=== PATIENT | male | born 1960 | race Caucasian/White ===

== ENCOUNTER 2016-12-08 07:43 | Day surgery (SDC) | payer OTHER ==
[2016-12-08 08:17] VITALS: BMI 39.5
[2016-12-08 08:22] VITALS: TEMP 97.8
--- NOTE | 2016-12-08 08:39 | CP.SDSHP ---
Same Day Surgery H & P - History Proposed Procedure: EGD Pre-Op Diagnosis: SEE NOTES - Previous Medical/Surgical History Misc: Other Pain: 4.Moderate Pain Previous Surgical History: ING. HERNIA SX. BACK SX. - Allergies Allergies: Allergies No Known Allergies Allergy (Verified 04/03/16 10:33) - Physical Exam General Appearance: N Vital Signs: Vital Signs 12/08/16 08:17 Temperature 97.8 F Pulse Rate 72 Respiratory 19 Rate Blood Pressure 99/66 L O2 Sat by Pulse 98 Oximetry Mental Status: Alert & Oriented x3 Neuro: WNL Heart: WNL Lungs: WNL GI: Other - {Optional Preform as Required} Breast: WNL Abdomen: Other Rectal: Other Integument: WNL : WNL Ortho: Other ENT: WNL - Impression Pt. Evaluated Today:Candidate for Anesthesia & Procedure: Yes - Date & Time Time: 08:39 Short Stay Discharge - Short Stay Discharge Admitting Diagnosis/Reason for Visit: DYSPEPSIA Disposition: HOME/ ROUTINE
[2016-12-08] MEDS ORDERED: Midazolam 2 MG/2 ML VIAL ONE (08:40)
[2016-12-08] MEDS ORDERED: Propofol 10 mg/ml Inj (20 ML) ONE (08:41)
[2016-12-08] MEDS ORDERED: Lactated Ringer's 500 ML IV ONE (08:41)
[2016-12-08 08:46] VITALS: O2SAT 100
[2016-12-08] MEDS ORDERED: Belladonna-Phenobarbital PO ONE (09:15)
[2016-12-08 10:16] VITALS: BP 93/50; PULSE 70; RESP 15
== END 2016-12-08 10:30 | disposition home or self-care (01) ==
LOC: C.ENDO 07:43
PROVIDERS: ATTEND Specialist
DX: K29.00 Acute gastritis without bleeding (principal); K44.9 Diaphragmatic hernia without obstruction or gangrene; K31.89 Other diseases of stomach and duodenum; K29.50 Unspecified chronic gastritis without bleeding; R10.13 Epigastric pain; R10.84 Generalized abdominal pain; K21.9 Gastro-esophageal reflux disease without esophagitis
CPT/HCPCS: 43239; 88305; 88342; J2250; J2704; J3010; J7040; J7120

== ENCOUNTER 2017-06-01 10:02 | Emergency (ER) | payer OTHER ==
[2017-06-01 10:14] VITALS: BMI 39.0
[2017-06-01] MEDS ORDERED: Peg-Electrolyte Oral Soln 4L (Golytely) PO STA (13:04)
--- NOTE | 2017-06-01 14:32 | C.PDOC ---
History Of Present Illness 56 y/o male presents to the ER complaining of abdominal pain which has been present for the last 3 days. Patient reports that the pain is constant. Patient states that he had a back surgery in a hospital but he could not recall the name of the hospital. He has a back stimulator and he is taking Oxycodone. Patient notes that he did not have bowel movements for the past 3 days. Patient denies having vomiting. Time Seen by Provider: 06/01/17 11:35 Chief Complaint (Nursing): Abdominal Pain History Per: Patient History/Exam Limitations: no limitations Onset/Duration Of Symptoms: Days Current Symptoms Are (Timing): Still Present Severity: Moderate Past Medical History Reviewed: Historical Data, Nursing Documentation, Vital Signs Vital Signs: Last Vital Signs Temp 98.2 F 06/01/17 16:34 Pulse 91 H 06/01/17 16:34 Resp 20 06/01/17 16:34 BP 104/68 06/01/17 16:34 Pulse Ox 99 06/01/17 16:34 - Medical History PMH: Gastritis, Hypercholesterolemia Denies: Chronic Kidney Disease Surgical History: Endoscopy Family History: States: No Known Family Hx - Social History Hx Alcohol Use: No Hx Substance Use: No - Immunization History Hx Tetanus Toxoid Vaccination: Yes Hx Influenza Vaccination: Yes Hx Pneumococcal Vaccination: Yes Review Of Systems Except As Marked, All Systems Reviewed And Found Negative. Gastrointestinal: Positive for: Abdominal Pain, Constipation. Negative for: Vomiting Physical Exam - Physical Exam Appears: Non-toxic, No Acute Distress, Other (lying on right side, cannot lie on back) Skin: Normal Color, Warm Head: Atraumatic, Normacephalic Eye(s): bilateral: Normal Inspection Nose: Normal Oral Mucosa: Moist Neck: Supple Chest: Symmetrical Cardiovascular: Rhythm Regular Respiratory: Normal Breath Sounds, No Accessory Muscle Use, No Rales, No Rhonchi , No Wheezing Gastrointestinal/Abdominal: Normal Exam, Soft, Tenderness (diffuse tenderness on lower part of abdomen) Back: Normal Inspection, Other (dressing intact, no active bleeding) Neurological/Psych: Oriented x3, Normal Speech, Normal Motor, Normal Sensation ED Course And Treatment O2 Sat by Pulse Oximetry: 98 (RA) Pulse Ox Interpretation: Normal - Other Rad Abdomen upright X-Ray: Viewed By Me, Read By Radiologist Interpretation: Accession No. : [id number]. Patient Name / ID : ELIO GARCIA / [id number]. Exam Date : 06/01/2017 12:47:22 ( Approved ). Study Comment : Sex / Age : M / [id number]. Creator : Yolanda Berumen. Dictator : Yolanda Berumen. Charge Operator : Operations Team Leader : Yolanda Wise. Approver2 : Report Date : 06/01/2017 16:58:23. My Comment : . HISTORY: constipation. COMPARISON: CT abdomen and pelvis . FINDINGS: BOWEL: Stool retention.No bowel obstruction. BONES: Lumbosacral level L5-S1 hardware fusion present interval neuro stimulator pain device electrodes project over T9 and T8. ; pack in right upper quadrant. OTHER FINDINGS: No infiltrate. IMPRESSION: No infiltrate. No bowel obstruction. Stool retention. Lumbosacral postsurgical change ; neurostimulator device electrodes over inferior thoracic spinal frontal view Progress Note: [id number] was found to be negative. Patient given Fleet Enema and GoLitely po. Patient had multiple BMs in ED with improvement of symptoms. Patient is being d/c home with PMD follow up. Disposition - Disposition Disposition: HOME/ ROUTINE Disposition Time: 16:23 Condition: STABLE Additional Instructions: Follow up with PMD within 1-2 days. Return to ED if feel worse. Prescriptions: Docusate Sodium [Colace] 100 mg PO TID #30 capsule Lactulose 30 ml PO DAILY PRN #600 ml PRN Reason: Constipation Instructions: Constipation in Adults, Oxycodone Forms: [facility] ([place]) Print Language: [place] - Clinical Impression Clinical Impression: Constipation - PA / RECRUITER MANAGER / Resident Statement MD/DO has reviewed & agrees with the documentation as recorded. - Scribe Statement The provider has reviewed the documentation as recorded by the Kaitlynibe Estiven Casas Provider Attestation All medical record entries made by the Scribe were at my direction and personally dictated by me. I have reviewed the chart and agree that the record accurately reflects my personal performance of the history, physical exam, medical decision making, and the department course for this patient. I have also personally directed, reviewed, and agree with the discharge instructions and disposition.
[2017-06-01 16:35] VITALS: BP 104/68; PULSE 91; RESP 20; TEMP 98.2
--- NOTE | 2017-06-01 16:59 | RAD ---
HISTORY: constipation COMPARISON: CT abdomen and pelvis 03/10/2016 FINDINGS: BOWEL: Stool retention.No bowel obstruction. BONES: Lumbosacral level L5-S1 hardware fusion present interval neuro stimulator pain device electrodes project over T9 and T8. ; pack in right upper quadrant OTHER FINDINGS: No infiltrate IMPRESSION: No infiltrate. No bowel obstruction. Stool retention Lumbosacral postsurgical change ; neurostimulator device electrodes over inferior thoracic spinal frontal view
[2017-06-01 18:20] VITALS: O2SAT 98
== END 2017-06-01 16:36 | disposition home or self-care (01) ==
LOC: C.ER 10:02
DX: K59.00 Constipation, unspecified (principal)

== ENCOUNTER 2017-10-24 07:12 | Day surgery (SDC) | payer OTHER ==
[2017-10-23 12:37] VITALS: BMI 42.4
--- NOTE | 2017-10-24 08:58 | CP.SDSHP ---
Same Day Surgery H & P - History Proposed Procedure: egd Pre-Op Diagnosis: SEE NOTES - Previous Medical/Surgical History Misc: Other Pain: 4.Moderate Pain - Allergies Allergies: Allergies No Known Allergies Allergy (Verified 10/24/17 07:53) - Physical Exam General Appearance: N Vital Signs: Vital Signs 10/24/17 07:30 Temperature 97.8 F Pulse Rate 74 Respiratory 19 Rate Blood Pressure 109/77 O2 Sat by Pulse 98 Oximetry Mental Status: Alert & Oriented x3 Neuro: WNL Heart: WNL Lungs: WNL GI: Other - {Optional Preform as Required} Breast: WNL Abdomen: Other Rectal: Other Integument: WNL : WNL Ortho: WNL ENT: WNL - Impression Pt. Evaluated Today:Candidate for Anesthesia & Procedure: Yes - Date & Time Time: 08:58 Short Stay Discharge - Short Stay Discharge Admitting Diagnosis/Reason for Visit: ABDOMINAL PAIN / DYSPEPSIA Disposition: HOME/ ROUTINE
[2017-10-24] MEDS ORDERED: Lactated Ringer's 1,000 ML IV ONE (09:00)
[2017-10-24] MEDS ORDERED: Propofol 10 mg/ml Inj (20 ML) ONE (09:14)
[2017-10-24] MEDS ORDERED: Belladonna-Phenobarbital PO ONE (09:25)
[2017-10-24] MEDS ORDERED: Lactated Ringer's 500 ML IV SCH (09:45)
[2017-10-24 09:58] VITALS: RESP 16; O2SAT 98
[2017-10-24 10:20] VITALS: BP 100/66; PULSE 74; TEMP 98
== END 2017-10-24 10:15 | disposition home or self-care (01) ==
LOC: C.ENDO 07:12
PROVIDERS: ATTEND Specialist
DX: K20.9 Esophagitis, unspecified (principal); K44.9 Diaphragmatic hernia without obstruction or gangrene; K29.70 Gastritis, unspecified, without bleeding
CPT/HCPCS: 43239; 88305; 88342; J2001; J2704; J7040; J7120